=== PATIENT | female | born 1980 | race Caucasian/White ===

== ENCOUNTER → 2017-03-20 09:40 | Observation (INO) ==
--- NOTE | 2017-03-20 08:52 | OB/GYN History & Physical ---
Date of Encounter: 03/20/17 Time of Encounter: 08:48 Assessment and Plan (1) 36 weeks gestation of Current visit: Yes Status: Acute admitted for observation (2) Vaginal bleeding during , antepartum Current visit: Yes Status: Acute due to need for telemonitoring in labor will transfer to [facility] Dr. De La Torre accepts transfer of patient (3) Low lying placenta nos or without hemorrhage, third trimester Current visit: Yes Status: Acute low lying placenta with breech presentation History of Present Illness Chief complaint: Vaginal bleeding HPI: Ms. Valdez is a 37 year old female at 36w0d presents to labor and delivery with complaints bright red vaginal bleeding this morning around 0700. Patient reports low lying placenta 1 cm from cervical os. Patient also reports fetus to be transverse/breech. Patient reports +FM. Denies any contractions. Speculum exam today: moderate amount of water brown discharge. Fern test negative. Cervix visually closed. GBS culture collected prior to exam. Bedside ultrasound per Dr. Arias: breech presentation. 4cm pocket of fluid noted. Discussed Patient with Dr. De La Torre who accepts transfer to [facility] labor and delivery. Past Med Surg Social Fam HX - Past Medical History Source: patient Medical history: kidney stones - Past Surgical History Surgical History: appendectomy - Social History Smoking Status: Never smoker Smokeless Tobacco Status: No Alcohol use: none Obstetrical History - Pregnancies : 4 Para: 2 Term: 2 : 0 Ab's: 1 Livin Medications and Allergies Phenazopyridine [Pyridium] 200 mg PO TID #6 tablet 08/02/15 [Rx] Sulfamethoxazole/Trimeth DS [Bactrim DS] 1 each PO BID #10 tablet 08/02/15 [Rx] cephALEXin [Keflex] 500 mg PO QID #40 capsule 08/21/15 [Rx] 3 Allergy/AdvReac Type Severity Reaction Status Date / Time Amoxicillin Allergy See Verified 08/02/15 15:15 Comments levofloxacin [From Levaquin] Allergy See Verified 08/02/15 15:15 Comments metronidazole [From Flagyl] Allergy See Verified 08/02/15 15:15 Comments Penicillins [PCN] Allergy See Verified 08/02/15 15:15 Comments Review of System OB - Constitutional Constitutional ROS IM: no chills, no fever(s), no headache(s) - Cardiovascular Cardiovascular: no chest pain, no edema, no palpitations, no syncope - Respiratory Respiratory: no cough - Gastrointestinal Gastrointestinal: no diarrhea, no heartburn, no nausea, no vomiting - Genitourinary Genitourinary: abnormal vaginal bleeding (Large gush of blood at 0700 no blood clots), no dysuria, no flank pain, no urinary frequency, no vaginal odor, no vaginal pruritis Exam - Constitutional Constitutional: well developed, well nourished, no acute distress, average body habitus - HEENT HEENT: Normocephaly, Mucus Membranes Moist - Neck Neck exam: full ROM, supple - Lungs Respiratory exam: CTAB - Cardiovascular Cardiovascular exam: RRR, +S1, +S2 - Abdomen Abdomen: Present: bowel sounds normal, gravid, non tender - Extremities Extremities exam: full ROM, normal capillary refill Deep Tendon Reflex Grade: 2+ Normal - Vagina Vagina: Present: normal moisture - Uterus Uterus exam: Present: normal size, normal contour - Anus/Rectum Anus/Rectum: Present: normal perianal skin - Comments Comments: FHR 120 bpm moderate variability +15x15 accels no decels noted. CAt. 1 tracing. Contractions irregular Results All other labs normal. - VTE Reasons for not Prescribing Prophylaxis: Treatment not Indicated - Low risk for VTE
--- NOTE | 2017-03-20 09:07 | Discharge Summary ---
Date of Encounter: 03/20/17 Time of Encounter: 09:06 - Discharge Diagnosis (1) 36 weeks gestation of Priority: Primary Status: Acute (2) Vaginal bleeding during , antepartum Priority: Secondary Status: Acute (3) Low lying placenta nos or without hemorrhage, third trimester Priority: Secondary Status: Acute - Discharge Medications Home Medications: Vit/Iron Fumarate/FA [ Tablet] 03/20/17 [History] Allergies/Adverse Reactions: 3 Allergy/AdvReac Type Severity Reaction Status Date / Time Amoxicillin Allergy See Verified 03/20/17 09:04 Comments levofloxacin [From Levaquin] Allergy See Verified 03/20/17 09:04 Comments metronidazole [From Flagyl] Allergy See Verified 03/20/17 09:04 Comments Penicillins [PCN] Allergy See Verified 03/20/17 09:04 Comments Date of admission: 03/20/17 08:11 Primary care physician: Pelon Castorena Discharging clinician: Latrice Horner Anticipated date of discharge: 03/20/17 - Patient Status Disposition: Transfer Critical Access Hosp Condition: Good - Discharge Instructions Follow Up With: Margy Rod DO [Primary Care Provider] - Chica Guo CNM [Non-Partnered Physician] - Hospital Course [employer] Time Attestation: Total time spent providing and/or coordinating discharge services: Time Spent: Less than 30 minutes Exam - Constitutional General appearance IM: A&O X 3, no acute distress, answers questions appropriately - VTE Reasons for not Prescribing Prophylaxis: Treatment not Indicated - Low risk for VTE
[2017-03-20 09:10] LABS: Basophils % 0.4 %; Eosinophils # 0.3 K/mcL (0.0-0.6); Eosinophils % 2.3 %; Hematocrit 37.4 % (35.3-44.9); Hemoglobin 12.4 g/dL (11.5-15.4); Immature Granulocytes % 0.4 % (0-4); Lymphocytes # 2.5 K/mcL (0.6-4.6); Lymphocytes % 22.9 %; Mean Corpuscular HGB Conc 33.2 g/dL (31.6-35.5); Mean Corpuscular Hemoglobin 27.7 pg (28.0-33.3); Mean Corpuscular Volume 83.5 fL (83.0-100.0); Mean Platelet Volume 11.8 fL (9.4-12.4); Monocytes # 0.7 K/mcL (0.0-1.3); Monocytes % 6.4 %; Neutrophils # 7.4 K/mcL (1.6-8.9); Platelet Count 210 K/mcL (140-400); Red Blood Count 4.48 M/mcL (3.82-4.97); Red Cell Distribution Width 13.2 % (11.5-14.5); Segmented Neutrophils % 67.6 %
[~2017-03-20 09:40] MED LIST: Ringers Solution, Lactated 1,000 ML IVC SCH; Ringers Solution, Lactated 1,000 ML ONE
== END | disposition short-term general hospital (02) ==
LOC: 1NENULAB
PROVIDERS: ADMIT Obstetrics & Gynecology; ATTEND Obstetrics & Gynecology